=== PATIENT | female | born 2005 | race Caucasian/White ===

== ENCOUNTER 2025-08-18 13:21 | Emergency (ER) | payer BC, SELFPAY ==
[2025-08-18 13:40] VITALS: BP 110/72; PULSE 101; RESP 20; TEMP 36.6; O2SAT 100
--- NOTE | 2025-08-18 14:15 | ED_ITS ---
HPI - Skin/Abscess/Foreign Bdy General Chief complaint: Skin/Abscess/Foreign Body Stated complaint: ITCHY SKIN History of Present Illness HPI narrative: CHIEF COMPLAINT: Itchy skin. PATIENT SUMMARY: The patient presented with itchy skin. HISTORY OF PRESENT ILLNESS: The patient, who recently returned from [facility] and [facility], reported experiencing itchy skin since early June. The itching intensified in [facility] and has been persistent. The patient noted that scratching often leads to swelling and the appearance of bumps. There has been an incident where the belly button became infected. The patient has worn a wetsuit regularly, which is rinsed after each use. The patient reported trying [id number] creams without relief and has been using a deeper moisturizing lotion since late June. The itching is severe at night, leading to waking up. The patient has not noticed any bugs or similar symptoms in others. The patient has tried Benadryl at night for relief, which helps with sleep but not with the itching. The patient did not find any change in symptoms with ocean exposure. There is no previous history of such symptoms. The patient has not experienced facial itching and uses a full-body wetsuit. PAST MEDICAL HISTORY: Not available. PAST SURGICAL HISTORY: Not available. MEDICATIONS: - [id number]-[id number] creams - Benadryl at night as needed ALLERGIES: The patient is not aware of any allergies. FAMILY HISTORY: Not available. SOCIAL HISTORY: - Travel: Recently returned from [facility] and [facility] - Occupation: Surf instructor - Smoking: Not mentioned - Alcohol Use: Not mentioned REVIEW OF SYSTEMS: Skin: Positive for itching, swelling when scratched, and bumps. Negative for facial itching and bug exposure. General: Negative for fever or fatigue. VITALS AND PHYSICAL EXAM: Not available. DIAGNOSTIC STUDIES: Not available. ASSESSMENT: The differential diagnosis is listed in order of most to least likely. 1. Allergic Contact Dermatitis: The patient's symptoms began after starting to use a wetsuit, which could be a potential irritant or allergen. This aligns with the onset of symptoms following a change in environment and exposure to new materials. 2. Immune Response Dermatitis: An immune response due to environmental changes or new substances encountered during travel could be causing widespread itching and rash. The lack of bug exposure and persistence of symptoms despite changes in location support this. 3. Scabies: Although less likely, due to the absence of classic signs such as burrows and involvement of other individuals, scabies remains a possible consideration given the global travel and persistent itch. PLAN: Treatment: - Prescribed prednisone starting at 40 mg with a tapering schedule over two weeks. - Advised using Benadryl at night as needed for sleep and to manage itching. Tests: - No immediate tests were performed. Consider dermatology referral if symptoms persist. Patient Education: - Recommended avoiding hot showers. - Emphasized the importance of keeping skin moisturized. - Provided instructions on how to take prednisone. Follow-Up: - Encouraged follow-up if symptoms do not improve with steroids. - Suggested dermatology consultation for specialized care if necessary. Disposition: - Prescription to be filled at [facility] in [place]. Related Data Home Medications ?Medication ?Instructions ?Recorded ?Confirmed ?Last Taken ?Type No Home Medications 08/18/25 08/18/25 U nknown History Allergies Allergy/AdvReac Type Severity Reaction Status Date / Time No Known Allergies Allergy Verified 08/18/25 14:18 Review of Systems Review of Systems: All systems reviewed & are unremarkable except as noted in HPI and below Eyes: Eyes: Reports as per HPI ENT: Reports as per HPI Cardiovascular: Cardiovascular: Reports as per HPI Respiratory: Respiratory: Reports as per HPI Genitourinary: Genitourinary: Reports as per HPI Musculoskeletal: Musculoskeletal: Reports as per HPI Integumentary/Breasts: Skin/Breast: Reports as per HPI Neurologic: Reports as per HPI Psychiatric: Psychiatric: Reports as per HPI Endocrine: Endocrine: Reports as per HPI Hematologic/Lymphatic: Hematologic/Lymphatic: Reports as per HPI Allergic/Immunologic: Allergic/Immunologic: Reports as per HPI Exam Const: General: cooperative, healthy appearing, comfortable, no acute distress and well developed Orientation/consciousness: patient oriented x3 HENMT: Head: normal to inspection Eyes: General: appearance normal, both eyes and all related structures Resp: Effort & Inspection: normal respiratory effort and able to speak in complete sentences Auscultation: clear to auscultation bilaterally Cardio: Rate: regular rate Rhythm: regular rhythm Heart sounds: S1 normal heart sound present and S2 normal heart sound present Skin: General skin exam: normal color Other: Prurutic rash small papules noted to bilateral arms and abdomen Neuro: General: patient oriented x3 Cognition (Neuro): normal cognition Speech: normal speech Psych: Mental Status: mental status grossly normal Course Course Level of Care: Express Care Visit Vital Signs Vital signs: Vital Signs Temperature 97.8 F 08/18/25 13:40 Pulse Rate 101 H 08/18/25 13:40 Respiratory Rate 20 08/18/25 13:40 Blood Pressure 110/72 08/18/25 13:40 Pulse Oximetry 100 08/18/25 13:40 Oxygen Delivery Room Air 08/18/25 13:40 Temperature 97.8 F 08/18/25 13:40 Pulse Rate 101 H 08/18/25 13:40 Respiratory Rate 20 08/18/25 13:40 Blood Pressure 110/72 08/18/25 13:40 Pulse Oximetry 100 08/18/25 13:40 Oxygen Delivery Room Air 08/18/25 13:40 MDM - Skin/Abscess/Foreign Bdy MDM Narrative Medical decision making narrative: MEDICAL DECISION MAKING: The history of present illness was reviewed, focusing on the onset and duration of symptoms, prior travel, and exposure to potential allergens. Testing was not performed at this visit, but a dermatology referral was recommended if symptoms persisted. The differential diagnosis included allergic contact dermatitis, immune response dermatitis, and scabies, with a treatment plan involving oral steroids and antihistamines. The plan of care included patient education on symptom management and instructions for medication use. Differential Diagnosis Differential diagnosis: Likely urticaria, insect bites and contact dermatitis Medical Records Attestation: I reviewed the patient's medical records. Discharge Plan Discharge Clinical Impression: Rash Patient Disposition: Home Condition: Stable Instructions: Antibiotic Form, Acute Rash (ED) Patient Language: Argentine Prescriptions: New prednisone 10 mg tablet 10 mg PO DIRECTED Qty: 40 0RF Rx Instructions: 4 tabs daily for 4 days 3 tabs daily for 4 days 2 tabs daily for 4 days then 1 tab daily for 4 days No Action No Home Medications Follow-up/Referrals: PHYSICIAN,SURGEON/PRESIDENT [Primary Care Provider, Internal Medicine] Time of Disposition: 14:19
== END 2025-08-18 14:24 | disposition home or self-care (01) ==
PROVIDERS: Emergency Provider Nurse Practitioner Family
DX: R21 Rash and other nonspecific skin eruption (principal)
CPT/HCPCS: 99213; G0463